=== PATIENT | male | born 1970 | race Caucasian/White ===

== ENCOUNTER 2020-01-29 09:46 | Emergency (ER) | payer OTHER ==
[~2020-01-29] VITALS: Ht 182.9 cm; Wt 95.3 kg
[2020-01-29] MEDS ORDERED: VALIUM5 MG PO (12:04)
[2020-01-29] MEDS ORDERED: PREDNISONE20 MG PO (12:04)
== END 2020-01-29 12:26 | disposition home or self-care (01) ==
LOC: ED 09:46
DX: M54.5 Low back pain (principal)
CPT/HCPCS: 96374; 96375; 99283-25; J1100; J3360